=== PATIENT | female | born 1965 | race Caucasian/White ===

== ENCOUNTER 2018-11-30 17:46 | Inpatient (IN) | payer OTHER ==
[~2018-11-30] VITALS: Ht 165.1 cm; Wt 113.9 kg
[2018-11-30 17:52] VITALS: BP_SYST 103
[2018-11-30] MEDS ORDERED: KETOROLAC TROMETHAMINE 60 MG/2 ML VIAL IM ONE (18:15)
[2018-11-30] MEDS ORDERED: ONDANSETRON 4 MG ODT TAB PO ONE (18:15)
[2018-11-30] MEDS ORDERED: NACL 0.9% 1,000 ML IV ONE ×2 (18:45→20:15)
[2018-11-30] MEDS ORDERED: KETOROLAC TROMETHAMINE 30 MG VIAL IVP ONE (18:45)
[2018-11-30] MEDS ORDERED: ONDANSETRON HCL 4 MG/2 ML VIAL IVP ONE ×2 (18:45→21:15)
[2018-11-30 19:15] LABS: BASOPHILS % (AUTO) 0.1 % (0.0-2.0); EOSINOPHILS % (AUTO) 0.3 % (0.0-4.0); HEMATOCRIT 40.6 % (36-48); LYMPHOCYTES # (AUTO) 0.5 K/uL (1.0-5.5); LYMPHOCYTES % (AUTO) 6.2 % (20.5-51.5); MEAN CORPUSCULAR HEMOGLOBIN 28 pg (27-31); MEAN CORPUSCULAR HGB CONC 32 % (32-36); MEAN CORPUSCULAR VOLUME 86 fL (79.0-98.0); MONOCYTES # (AUTO) 0.1 K/uL (0.0-1.0); MONOCYTES % (AUTO) 1.3 % (1.7-9.3); NEUTROPHILS # (AUTO) 7.1 K/uL (1.8-7.7); NEUTROPHILS % (AUTO) 92.1 % (40.0-70.0); PLATELET COUNT (AUTO) 275 K/uL (130-430); RED BLOOD CELL COUNT(AUTO) 4.72 MIL/uL (4.2-6.2); RED CELL DISTRIBUTION WIDTH 13.4 % (9.0-15.0); WHITE BLOOD COUNT (AUTO) 7.7 K/uL (4.8-10.8)
[2018-11-30 19:17] LABS: INR 0.9 (0.8-1.2); PROTHROMBIN TIME 9.4 SECS (9.5-12.5)
[2018-11-30 19:21] LABS: CALCIUM 9.1 mg/dL (8.4-11.0); CREATININE 1.17 mg/dL (0.55-1.30); POTASSIUM 3.4 mmol/L (3.5-5.1)
[2018-11-30 19:25] LABS: ALBUMIN 3.3 g/dL (3.4-4.8); TOTAL BILIRUBIN 0.4 mg/dL (0.0-1.0)
[2018-11-30] MEDS ORDERED: MORPHINE 4 MG/ML INJ. SYRINGE IVP ONE ×2 (20:15→22:00)
[2018-11-30] MEDS ORDERED: fentaNYL CITRATE/PF 100 MCG/2 ML AMP IVP ONE (21:15)
[2018-11-30] MEDS ORDERED: METOCLOPRAMIDE HCL 10 MG/2 ML VIAL IVP ONE (21:30)
[2018-11-30] MEDS ORDERED: D5NS 1,000 ML IV ONE (21:30)
[2018-11-30] MEDS ORDERED: MORPHINE 4 MG/ML INJ. SYRINGE IVP PRN ×2 (21:45)
[2018-11-30 22:18] VITALS: BP_SYST 124
[2018-11-30 22:30] VITALS: BP_SYST 124
[2018-11-30] MEDS: D5NS 1,000 ML IV SCH (22:58)
[2018-12-01] MEDS: ONDANSETRON HCL 4 MG/2 ML VIAL IVP PRN ×3 (05:17→23:24)
[2018-12-01] MEDS: METOCLOPRAMIDE HCL 10 MG/2 ML VIAL IVP PRN ×2 (06:34→19:39)
[2018-12-01 08:54] VITALS: BP_SYST 100
[2018-12-01] MEDS: D5NS 1,000 ML IV SCH ×2 (09:05→17:54)
[2018-12-01 09:13] LABS: CHOLESTEROL 167 mg/dL (<200); HDL CHOLESTEROL 53 mg/dL (>55); LDL CHOLESTEROL 96 mg/dL (<100); TRIGLYCERIDES 66 mg/dL (30-150)
[2018-12-01] MEDS: PANTOPRAZOLE SODIUM 40 MG/VIAL (PROTONIX) IVP SCH (09:52)
[2018-12-01 11:33] VITALS: BP_SYST 107
[2018-12-01 15:21] VITALS: BP_SYST 124
[2018-12-01 20:00] VITALS: BP_SYST 137
[2018-12-01 23:07] VITALS: BP_SYST 108
[2018-12-02] MEDS: ACETAMINOPHEN 325 MG TABLET PO PRN ×2 (05:40→22:22)
[2018-12-02] MEDS: D5NS 1,000 ML IV SCH ×3 (05:40→22:24)
[2018-12-02] MEDS: METOCLOPRAMIDE HCL 10 MG/2 ML VIAL IVP PRN ×2 (06:07→13:51)
[2018-12-02 06:30] LABS: CALCIUM 7.8 mg/dL (8.4-11.0); CREATININE 0.9 mg/dL (0.55-1.30); POTASSIUM 3.8 mmol/L (3.5-5.1)
[2018-12-02 06:33] LABS: PROTHROMBIN TIME 10.4 SECS (9.5-12.5)
[2018-12-02 06:37] LABS: ALBUMIN 2.3 g/dL (3.4-4.8); BASOPHILS % (AUTO) 0.5 % (0.0-2.0); EOSINOPHILS # (AUTO) 0.2 K/uL (0.0-0.4); EOSINOPHILS % (AUTO) 4.1 % (0.0-4.0); HEMATOCRIT 32.5 % (36-48); HEMOGLOBIN 10.7 g/dL (12.0-16.0); LYMPHOCYTES # (AUTO) 1.6 K/uL (1.0-5.5); LYMPHOCYTES % (AUTO) 38.9 % (20.5-51.5); MEAN CORPUSCULAR HEMOGLOBIN 29 pg (27-31); MEAN CORPUSCULAR HGB CONC 33 % (32-36); MEAN CORPUSCULAR VOLUME 86 fL (79.0-98.0); MONOCYTES # (AUTO) 0.4 K/uL (0.0-1.0); MONOCYTES % (AUTO) 9.3 % (1.7-9.3); NEUTROPHILS % (AUTO) 47.2 % (40.0-70.0); PLATELET COUNT (AUTO) 212 K/uL (130-430); RED BLOOD CELL COUNT(AUTO) 3.77 MIL/uL (4.2-6.2); RED CELL DISTRIBUTION WIDTH 13.9 % (9.0-15.0); TOTAL BILIRUBIN 0.2 mg/dL (0.0-1.0); WHITE BLOOD COUNT (AUTO) 4.2 K/uL (4.8-10.8)
[2018-12-02 08:00] VITALS: BP_SYST 120
[2018-12-02] MEDS: PANTOPRAZOLE SODIUM 40 MG/VIAL (PROTONIX) IVP SCH (08:40)
[2018-12-02] MEDS: ONDANSETRON HCL 4 MG/2 ML VIAL IVP PRN ×2 (08:43→18:45)
[2018-12-02 11:17] VITALS: BP_SYST 120
[2018-12-02 16:00] VITALS: BP_SYST 115
[2018-12-02 20:00] VITALS: BP_SYST 129
[2018-12-03 00:29] VITALS: BP_SYST 137
[2018-12-03 06:06] LABS: ALANINE AMINOTRANSFERASE 77 U/L (12-78); ALBUMIN 2.5 g/dL (3.4-4.8); ASPARTATE AMINOTRANSFERASE 27 U/L (10-37); BILIRUBIN,DIRECT < 0.1 mg/dL (0.0-0.3); TOTAL BILIRUBIN 0.2 mg/dL (0.0-1.0)
[2018-12-03] MEDS: METOCLOPRAMIDE HCL 10 MG/2 ML VIAL IVP PRN (07:55)
[2018-12-03] MEDS: PANTOPRAZOLE SODIUM 40 MG/VIAL (PROTONIX) IVP SCH (07:56)
[2018-12-03 08:00] VITALS: BP_SYST 153
[2018-12-03 12:02] VITALS: BP_SYST 129
[2018-12-03] MEDS: ONDANSETRON HCL 4 MG/2 ML VIAL IVP PRN (13:36)
[2018-12-03] MEDS: D5NS 1,000 ML IV SCH (13:37)
[2018-12-03 14:05] VITALS: BP_SYST 129
[2018-12-03 16:02] VITALS: BP_SYST 110
== END 2018-12-03 16:51 | disposition home or self-care (01) | DRG 439 ==
LOC: SED 17:46 → SMU 21:19
PROVIDERS: ADMIT Internal Medicine Hospice and Palliative Medicine; ATTEND Internal Medicine Hospice and Palliative Medicine
DX: K85.90 Acute pancreatitis without necrosis or infection, unspecified (principal); Z68.41 Body mass index [BMI] 40.0-44.9, adult; K44.9 Diaphragmatic hernia without obstruction or gangrene; E78.5 Hyperlipidemia, unspecified; E66.9 Obesity, unspecified; K21.9 Gastro-esophageal reflux disease without esophagitis; K57.90 Diverticulosis of intestine, part unspecified, without perforation or abscess without bleeding; Z87.891 Personal history of nicotine dependence; Z90.49 Acquired absence of other specified parts of digestive tract; Z90.710 Acquired absence of both cervix and uterus
CPT/HCPCS: 36415; 71045; 74181; 80053; 80061; 80076; 82150-TC; 82787; 83605; 83690-TC; 84478-TC; 84484; 85025; 85610-TC; 85730-TC; 86038; 90656; 93005; 96374; 96375; 99285; C9113; J1885; J2270; J2405; J2765; J3010; J7042

== ENCOUNTER 2019-01-24 00:37 | Emergency (ER) | payer OTHER ==
[~2019-01-24] VITALS: Ht 167.6 cm; Wt 106.6 kg
[2019-01-24 00:56] VITALS: BP_SYST 145
[2019-01-24] MEDS ORDERED: NACL 0.9% 1,000 ML IV ONE ×2 (01:12→06:45)
[2019-01-24] MEDS ORDERED: ONDANSETRON HCL 4 MG/2 ML VIAL IVP ONE ×2 (01:15→06:45)
[2019-01-24] MEDS ORDERED: fentaNYL CITRATE/PF 100 MCG/2 ML AMP IVP ONE ×3 (01:15→06:45)
[2019-01-24 01:46] LABS: HEMOGLOBIN 11.6 g/dL (12.0-16.0); WHITE BLOOD COUNT (AUTO) 5.4 K/uL (4.8-10.8)
[2019-01-24 01:47] LABS: BASOPHILS # (AUTO) 0.2 K/uL (0.0-0.2); BASOPHILS % (AUTO) 4.3 % (0.0-2.0); EOSINOPHILS # (AUTO) 0.1 K/uL (0.0-0.4); EOSINOPHILS % (AUTO) 2.6 % (0.0-4.0); HEMATOCRIT 35.1 % (36-48); LYMPHOCYTES % (AUTO) 36.5 % (20.5-51.5); MEAN CORPUSCULAR HEMOGLOBIN 28 pg (27-31); MEAN CORPUSCULAR HGB CONC 33 % (32-36); MEAN CORPUSCULAR VOLUME 86 fL (79.0-98.0); MONOCYTES # (AUTO) 0.4 K/uL (0.0-1.0); MONOCYTES % (AUTO) 7.9 % (1.7-9.3); NEUTROPHILS # (AUTO) 2.6 K/uL (1.8-7.7); NEUTROPHILS % (AUTO) 48.7 % (40.0-70.0); PLATELET COUNT (AUTO) 315 K/uL (130-430); RED CELL DISTRIBUTION WIDTH 14.1 % (9.0-15.0)
[2019-01-24 01:53] LABS: CALCIUM 8.9 mg/dL (8.4-11.0); CREATININE 0.86 mg/dL (0.55-1.30)
[2019-01-24 01:57] LABS: ALBUMIN 3.1 g/dL (3.4-4.8); TOTAL BILIRUBIN 0.4 mg/dL (0.0-1.0)
[2019-01-24] MEDS ORDERED: KETOROLAC TROMETHAMINE 30 MG VIAL IVP ONE (04:15)
[2019-01-24] MEDS ORDERED: FAMOTIDINE PF 20 MG/2 ML VIAL IVP ONE (04:15)
[2019-01-24] MEDS ORDERED: HYDROcodone/ACETAMIN 10-325 MG TAB PO ONE (05:45)
[2019-01-24] MEDS ORDERED: METOCLOPRAMIDE HCL 10 MG/2 ML VIAL IVP ONE (07:30)
[2019-01-24] MEDS ORDERED: MORPHINE 4 MG/ML INJ. SYRINGE IVP ONE (07:30)
[2019-01-24 08:15] VITALS: BP_SYST 145
== END 2019-01-24 08:15 | disposition home or self-care (01) ==
LOC: SED 00:37
DX: R10.31 Right lower quadrant pain (principal); Z90.49 Acquired absence of other specified parts of digestive tract; Z90.710 Acquired absence of both cervix and uterus; Z98.51 Tubal ligation status
CPT/HCPCS: 36415; 74176; 80053; 83690; 85025; 96374; 96375; 96376; 99284; J1885; J2270; J2405; J2765; J3010; J3490; J7030

== ENCOUNTER 2021-04-20 08:39 | Emergency (ER) | payer OTHER ==
[~2021-04-20] VITALS: Ht 165.1 cm; Wt 124.7 kg
[2021-04-20 08:39] VITALS: BP_SYST 119
[2021-04-20] MEDS ORDERED: HYDROcodone/ACETAMIN 5-325 MG TAB (NORCO/ VICODIN) PO ONE (08:45)
[2021-04-20] MEDS ORDERED: LIDOCAINE/EPI 1% 1:100000 20 ML VIAL INJ ONE (08:50)
[2021-04-20] MEDS ORDERED: AMOX-426 PO (09:12)
[2021-04-20] MEDS ORDERED: DIPH-TET-PERTUS Vaccine 0.5 ML VIAL (ADACEL) I.M. ONE (09:15)
[2021-04-20 09:28] VITALS: BP_SYST 119
== END 2021-04-20 09:27 | disposition home or self-care (01) ==
LOC: SED 08:39
DX: S61.451A Open bite of right hand, initial encounter (principal); W54.0XXA Bitten by dog, initial encounter; Y93.89 Activity, other specified; Y92.89 Other specified places as the place of occurrence of the external cause; Y99.8 Other external cause status
CPT/HCPCS: 90715; 99283